=== PATIENT | female | born 1990 | race Caucasian/White ===

== ENCOUNTER 2017-09-25 21:39 | Emergency (ER) | payer OTHER ==
[~2017-09-25] VITALS: Ht 152.4 cm; Wt 58.5 kg
[2017-09-25 21:53] VITALS: Ht 152.4 cm; Wt 58.5 kg
[2017-09-25 23:22] VITALS: BP 112/73
== END 2017-09-25 23:22 | disposition home or self-care (01) ==
LOC: ED 21:39
DX: M79.1 Myalgia (principal)